=== PATIENT | male | born 1960 | race Caucasian/White ===

== ENCOUNTER → 2018-01-31 | Outpatient (CLI) | payer BC ==
--- NOTE | 2018-01-31 16:12 | CONS ---
CONSULTATION REASON FOR CONSULTATION: Obstructive sleep apnea. This is a 57-year-old male patient coming in due to concerns of obstructive sleep apnea. He was feeling tired and sleepy and he describes his sleep quality to be poor as the patient wakes up nonrefreshed during the day. He discussed this with primary care physician and there was a concern of obstructive sleep apnea and he was referred to me. He snores loud. He has friends with sleep apnea while being on this CPAP treatment and they have improved and for that reason, the patient is very excited to be here today. The patient has not any recent weight gain. He goes to bed typically around 10:00 p.m., wakes up at 5:00 a.m. in the morning. He spends around 7 hours in bed, however it feels to him that he sleeps only 4-5 hours. He takes a few minutes to fall asleep. No issues in initiating and maintaining sleep. His [place] score is at 10. He denies waking up in the middle of the night for any reasons. No nocturia. On a few instances he has woken up choking or gasping for air. This is not a common occurrence. No restlessness lower extremities. PAST MEDICAL HISTORY: Hyperlipidemia, hypertension, hypothyroidism, congenitally impaired hearing. SURGICAL HISTORY: Includes colonoscopy and cataract surgery. DRUG ALLERGIES: Not known. OUTPATIENT MEDICATION: Includes Omesar 10/20 mg p.o. daily; Zocor 20 daily; levothyroxine 75 mcg p.o. daily; Zyrtec 10 mg p.o. daily. SOCIAL HISTORY: Nonsmoker, no history of alcohol. No history of IV drugs. Occupationally, he works for [employer]. He drives sometimes long distances and he has never fallen asleep while driving, never falls asleep behind the wheel. Never been involved in a motor vehicle accidents because of feeling tired or sleepy. FAMILY HISTORY: Negative for sleep apnea. REVIEW OF SYSTEMS: 12-point review of system was done. Positive findings are mentioned above in the history of present illness. Of significance is the absence of any sleep paralysis, hallucinations or cataplexy. No history of motor vehicle accidents because of feeling tired or sleepy. Denies falling asleep behind the wheel. [place] score is at 10. He has no insomnia. He occasionally wakes up with dry mouth. No anxiety or panic attacks. No heartburn at nighttime. No shortness of breath or chest pain at night time. PHYSICAL EXAMINATION: BP is 122/75, pulse 75, respirations 16, temp 98.9, height is 5 feet 7 inches, weight is 273, BMI 42.7. [place] score is a 10, neck size 17-1/2 inches. GENERAL APPEARANCE: Calm, comfortable. No acute distress. Head is atraumatic, normocephalic. NECK: Supple. No JVD. No goiter or neck mass. Mallampati class IV. LUNGS: Clear to auscultation. HEART: Sounds regular rhythm. Normal S1, S2. No murmurs. ABDOMEN: Soft, nontender. No organomegaly. EXTREMITIES: No edema. No cyanosis or clubbing NEUROLOGIC: The patient is A and O x3. No focal neurological deficits. PSYCHIATRIC: Negative for anxiety or depression. SKIN: Negative for any wounds or ulceration. IMPRESSION: 1. Obstructive sleep apnea clinically suspected, currently under investigation. 2. Hypersomnia, [place] score of 10. 3. Obesity, BMI of 42.7. 4. Mallampati class IV. 5. Hyperlipidemia. 6. Hypertension. 7. Hypothyroidism. 8. Congenitally impaired hearing. PLAN: 1. Weight loss. 2. Extend sleep hours to an average of 7-8 hours per night. 3. Proceed with a screening polysomnogram if the client will proceed with a home sleep study looking for any significant sleep breathing disorder and accordingly will plan treatment. SADIE / VALORIE: [id number] /
== END | disposition home or self-care (01) ==
LOC: SLEEP 14:46
PROVIDERS: ATTEND Internal Medicine Critical Care Medicine
DX: G47.10 Hypersomnia, unspecified (principal); R06.89 Other abnormalities of breathing; E66.9 Obesity, unspecified; E78.5 Hyperlipidemia, unspecified; I10 Essential (primary) hypertension; E03.9 Hypothyroidism, unspecified; H91.90 Unspecified hearing loss, unspecified ear; Z98.890 Other specified postprocedural states; Z79.899 Other long term (current) drug therapy; Z68.41 Body mass index [BMI] 40.0-44.9, adult
CPT/HCPCS: 99211

== ENCOUNTER → 2018-06-13 | Outpatient (CLI) | payer BC ==
--- NOTE | 2018-06-13 18:28 | PN ---
PROGRESS NOTE This is a 57-year-old male patient coming in for an annual check regarding his obstructive sleep apnea. The patient was diagnosed having RAJ, moderate to severe, with an AHI of 18.9, and patient is currently on CPAP at a pressure of 11 cm of water. The patient is doing extremely well. He is well treated with a CPAP pressure of 11 cm of water. He is using the AirFit N20 large nose mask. Upon my check, I noted that the patient's mask fit was not appropriate, and his mask was quite large for his facial dimensions. Based on that, I sized him to a medium-size AirFit N20 nose mask, which made him much more comfortable. On the compliance data, the patient has been wearing his CPAP every night. CPAP compliancy for more than 4 hours is 100%. Average CPAP is around 6.9 hours. Leak is 12 L/minute. His AHI while on treatment is down to 1.5. No major complaints otherwise for now. The patient has been doing extremely well. REVIEW OF SYSTEMS: Twelve-point review of systems was done. Positive findings were all mentioned above in the history of present illness. PHYSICAL EXAMINATION: BP is 135/75, pulse 79, respirations 16, temperature 98.5, saturation 95% on room air. Weight is 281. [place] score is 5. GENERAL APPEARANCE: Calm, comfortable. Head is atraumatic, normocephalic. NECK: Supple. There is no JVD. No goiter or neck mass. LUNGS: Clear to auscultation. HEART: Heart sounds are regular rate and rhythm. Normal S1, S2. No S3, S4. No murmurs. ABDOMEN: Soft, nontender. No organomegaly. EXTREMITIES: No edema. No cyanosis or clubbing. NEUROLOGIC: The patient is alert and oriented x3. No focal neurological deficits. IMPRESSION: Obstructive sleep apnea, moderate to severe, currently well treated with a CPAP pressure of 11 cm of water. The patient continues to benefit from treatment and his treatment remains successful based on the compliancy data. PLAN: 1. Continue CPAP therapy at the same level of pressure. 2. Offer this patient an AirFit N20 nose mask, medium size. 3. Encourage further weight loss. 4. Implement good sleep hygiene measures. 5. We will continue to follow. See me back in a year's time in followup, earlier if needed. MMODL / IJN: [id number] /
== END | disposition home or self-care (01) ==
LOC: SLEEP 16:26
PROVIDERS: ATTEND Internal Medicine Critical Care Medicine
DX: G47.33 Obstructive sleep apnea (adult) (pediatric) (principal); Z99.89 Dependence on other enabling machines and devices